=== PATIENT | male | born 1975 | race Caucasian/White ===

== ENCOUNTER 2017-01-23 06:20 | Day surgery (SDC) | payer BC ==
[2017-01-18 13:54] LABS: Basophils # (auto) 0 uL; Basophils % (auto) 0.4 % (0.0-2.0); CONDITION Y; Eosinophils # (auto) 0.5 uL; Eosinophils % (auto) 4.5 % (0.0-7.0); Hematocrit 46.9 % (41.0-53.0); Hemoglobin 16.1 g/dL (13.5-17.5); Lymphocytes # (auto) 1.9 uL; Lymphocytes % (auto) 17.6 % (10.0-50.0); Mean Corpuscular Hemoglobin 30.9 pg (28.0-32.0); Mean Corpuscular Hgb Conc. 34.4 g/dL (32.0-36.0); Mean Corpuscular Volume 89.8 fL (80.0-100.0); Mean Platelet Volume 7.9 fL (7.4-10.4); Monocytes # (auto) 0.6 uL; Monocytes % (auto) 5.8 % (0.0-12.0); Neutrophils # (auto) 7.7 uL; Neutrophils % (auto) 71.7 % (37.0-80.0); Platelet Count (auto) 439 10^3/uL (140-450); Red Cell Distribution Width 12.3 % (11.6-16.0); White Blood Cell 10.8 10^3/uL (4.4-10.8)
[2017-01-18 14:04] LABS: Urine Bilirubin Negative (Negative); Urine Blood Negative /uL (Negative); Urine Color Yellow (Yellow); Urine Glucose Normal (Normal); Urine Ketone Negative (Negative); Urine Nitrite Negative (Negative); Urine RBC 2 /hpf (0 - 3); Urine Urobilinogen Normal (Negative)
[2017-01-18 14:09] LABS: INR 0.93 (0.9-1.15); Partial Thromboplastin Time 27.9 sec (22.64-33.71); Prothrombin Time 10.1 sec (9.37-12.3)
[2017-01-18 14:15] LABS: Calcium 9.1 mg/dL (8.5-10.1); Potassium 3.9 mmol/L (3.5-5.1)
[~2017-01-23] VITALS: Ht 182.9 cm; Wt 106.6 kg
[~2017-01-23 06:20] MED LIST: HYDR-4663 PO; PERCOT PO
[2017-01-23] MEDS ORDERED: ceFAZolin 1GM/50ML D5W 50 ML IV ONE (06:58)
[2017-01-23] MEDS ORDERED: fentaNYL CITRATE 100 MCG/2 ML VL ONE (07:23)
[2017-01-23] MEDS ORDERED: PROPOFOL 10 MG/ML 20 ML IV ONE (07:23)
[2017-01-23] MEDS ORDERED: MIDAZOLAM HCL 1MG/1ML-2 ML VIAL ONE (07:23)
[2017-01-23] MEDS ORDERED: ROCURONIUM 10MG/ML 10ML VIAL IV ONE (07:24)
[2017-01-23] MEDS ORDERED: ONDANSETRON HCL 4 MG/2 ML VIAL IV ONE (08:45)
[2017-01-23] MEDS ORDERED: ePHEDrine SULFATE 50 MG/ML AMP IV PRN (08:45)
[2017-01-23] MEDS ORDERED: hydrALAZINE HCL 20 MG/ML VL IV PRN (08:45)
[2017-01-23] MEDS ORDERED: fentaNYL CITRATE 100 MCG/2 ML VL IV ONE (09:00)
[2017-01-23 09:35] VITALS: BP 147/95
== END 2017-01-23 09:39 | disposition home or self-care (01) ==
LOC: SUR 06:20
PROVIDERS: ATTEND Urology
DX: N20.1 Calculus of ureter (principal); Z88.8 Allergy status to other drugs, medicaments and biological substances; E78.5 Hyperlipidemia, unspecified; I34.1 Nonrheumatic mitral (valve) prolapse
CPT/HCPCS: 36415; 50590; 52332; 80048; 81001; 85025; 85610; 85730; 87086; C2617; J0690; J2250; J2704; J3010; J7030